=== PATIENT | male | born 1950 | race Caucasian/White ===

== ENCOUNTER → 2016-05-15 | Outpatient (CLI) | payer BC | DX: I82.409 Acute embolism and thrombosis of unspecified deep veins of unspecified lower extremity (principal); Z88.0 Allergy status to penicillin | CPT/HCPCS: G0463 ==

== ENCOUNTER → 2016-05-17 | Outpatient (CLI) | payer BC | LOC: OPSV 12:56 | DX: I82.409 Acute embolism and thrombosis of unspecified deep veins of unspecified lower extremity (principal); Z88.0 Allergy status to penicillin | CPT/HCPCS: G0463 ==

== ENCOUNTER → 2016-05-19 | Outpatient (CLI) | payer BC | LOC: OPSV 13:36 | DX: I82.409 Acute embolism and thrombosis of unspecified deep veins of unspecified lower extremity (principal); Z88.0 Allergy status to penicillin | CPT/HCPCS: G0463 ==

== ENCOUNTER → 2016-05-22 | Outpatient (CLI) | payer BC | LOC: OPSV 13:00 | DX: K57.30 Diverticulosis of large intestine without perforation or abscess without bleeding (principal); Z88.0 Allergy status to penicillin | CPT/HCPCS: G0463 ==

== ENCOUNTER → 2016-05-24 | Outpatient (CLI) | payer BC | LOC: OPSV 13:05 | DX: I82.401 Acute embolism and thrombosis of unspecified deep veins of right lower extremity (principal) | CPT/HCPCS: G0463 ==

== ENCOUNTER → 2016-05-26 | Outpatient (CLI) | payer BC | LOC: OPSV 13:51 | DX: I82.409 Acute embolism and thrombosis of unspecified deep veins of unspecified lower extremity (principal); Z88.0 Allergy status to penicillin | CPT/HCPCS: G0463 ==

== ENCOUNTER → 2016-05-29 | Outpatient (CLI) | payer BC | LOC: OPSV 13:45 | DX: K57.92 Diverticulitis of intestine, part unspecified, without perforation or abscess without bleeding (principal) | CPT/HCPCS: G0463 ==

== ENCOUNTER → 2016-06-02 | Outpatient (CLI) | payer BC | LOC: OPSV 05-31 14:00 | DX: K57.32 Diverticulitis of large intestine without perforation or abscess without bleeding (principal) | CPT/HCPCS: G0463 ==